=== PATIENT | female | born 1990 | race Two or more races ===

== ENCOUNTER 2023-03-08 10:32 | Outpatient (OUT) | payer OTHER, SELFPAY ==
--- NOTE | 2023-03-08 | XR_ITS ---
The [address] [address] Patient Name: DOUGLAS PALMER MRN: [id number] date: 1990 Sex: F Assigned Patient Location: [facility] Current Patient Location: [facility] Accession/Order Number: [id number] Exam Date: 03/08/2023 10:45 Report Date: 03/08/2023 13:08 At the request of: BRE HILTON Procedure: XR foot RT min 3V Exam: Radiographs: XR foot RT min 3V Reason for exam: RIGHT FOOT INJURY Comparison: Plain films dated 03/05/2023 XR/XR foot RT min 3V IMPRESSION: Acute nondisplaced fracture through the first distal phalanx with fracture line extension to the IP joint. Remainder the right foot is unremarkable. Electronically authenticated by: NANCY CORNELL Date: 03/08/2023 13:08
== END 2023-03-08 10:33 | disposition home or self-care (01) ==
LOC: RAD 10:32
PROVIDERS: Visit Provider Physician Assistant
DX: M79.674 Pain in right toe(s) (principal); S92.424D Nondisplaced fracture of distal phalanx of right great toe, subsequent encounter for fracture with routine healing
CPT/HCPCS: 73630

== ENCOUNTER 2023-03-23 09:25 | Outpatient (OUT) | payer OTHER, SELFPAY ==
--- NOTE | 2023-03-23 | XR_ITS ---
The [address] [address] Patient Name: DOUGLAS PALMER MRN: [id number] date: 1990 Sex: F Assigned Patient Location: [facility] Current Patient Location: [facility] Accession/Order Number: [id number] Exam Date: 03/23/2023 09:50 Report Date: 03/23/2023 11:34 At the request of: IVIS PRICE Procedure: XR foot RT min 3V PROCEDURE: XR foot RT min 3V COMPARISON: 03/08/2023 HISTORY: RIGHT FOOT PAIN FINDINGS: BONES:Subacute intra-articular fracture base of the first distal phalanx with no significant change in angulation or distraction. No new fracture or dislocation SOFT TISSUES:Negative. No visible soft tissue swelling. EFFUSION:None visible. OTHER: Negative. XR/XR foot RT min 3V IMPRESSION: Stable intra-articular nondisplaced fracture base of the first distal phalanx Electronically authenticated by: RADHA BERGERON Date: 03/23/2023 11:34
== END 2023-03-23 09:26 | disposition home or self-care (01) ==
LOC: RAD 09:25
PROVIDERS: Visit Provider Podiatrist Foot & Ankle Surgery
DX: S92.421A Displaced fracture of distal phalanx of right great toe, initial encounter for closed fracture (principal); S92.424D Nondisplaced fracture of distal phalanx of right great toe, subsequent encounter for fracture with routine healing
CPT/HCPCS: 73630

== ENCOUNTER 2023-09-27 08:03 | Outpatient (OUT) | payer OTHER, SELFPAY ==
--- NOTE | 2023-09-27 | XR_ITS ---
The [address] [address] Patient Name: DOUGLAS PALMER MRN: [id number] date: 1990 Sex: F Assigned Patient Location: Current Patient Location: Accession/Order Number: [id number] Exam Date: 09/27/2023 11:00 Report Date: 09/30/2023 04:45 At the request of: BRE HILTON Procedure: XR foot RT min 3V PROCEDURE: XR foot RT min 3V HISTORY: RIGHT FOOT PAIN COMPARISON: XR foot right 03/23/2023, 09/23/2023 FINDINGS: BONES:Transverse fracture line through base of first toe distal phalanx without intra-articular extension. Residual evidence of prior first distal phalanx fracture which extended into the articular surface. SOFT TISSUES:No visible soft tissue swelling. EFFUSION:None visible. OTHER: Negative. XR/XR foot RT min 3V IMPRESSION: 1. Acute to subacute transverse fracture through base of first distal phalanx. 2. Evidence of prior first distal phalanx fracture. Electronically authenticated by: RONEL DE LA GARZA Date: 09/30/2023 04:45
== END 2023-09-27 08:04 | disposition home or self-care (01) ==
LOC: EC 08:03
PROVIDERS: Visit Provider Physician Assistant
DX: M79.671 Pain in right foot (principal); S92.424A Nondisplaced fracture of distal phalanx of right great toe, initial encounter for closed fracture
CPT/HCPCS: 73630

== ENCOUNTER 2023-10-10 13:59 | Outpatient (OUT) | payer OTHER, SELFPAY ==
--- NOTE | 2023-10-10 | XR_ITS ---
The [address] [address] Patient Name: DOUGLAS PALMER MRN: [id number] date: 1990 Sex: F Assigned Patient Location: Current Patient Location: Accession/Order Number: [id number] Exam Date: 10/10/2023 13:59 Report Date: 10/10/2023 16:20 At the request of: BRE HILTON Procedure: XR foot RT min 3V PROCEDURE: XR foot RT min 3V COMPARISON: 09/27/2023 HISTORY: RIGHT FOOT PAIN FINDINGS: BONES:Increase in lucency across the base of the first distal phalanx consistent with lytic phase of healing. No bony bridging is observed. No additional fracture or dislocation SOFT TISSUES:Negative. No visible soft tissue swelling. EFFUSION:None visible. OTHER: Negative. XR/XR foot RT min 3V IMPRESSION: Stable extra-articular fracture base of the first distal phalanx with lytic healing Electronically authenticated by: RADHA BERGERON Date: 10/10/2023 16:20
== END 2023-10-10 14:00 | disposition home or self-care (01) ==
LOC: EC 13:59
PROVIDERS: Visit Provider Physician Assistant
DX: M79.671 Pain in right foot (principal); S92.424D Nondisplaced fracture of distal phalanx of right great toe, subsequent encounter for fracture with routine healing
CPT/HCPCS: 73630

== ENCOUNTER 2023-11-08 13:51 | Outpatient (OUT) | payer MEDICAID, SELFPAY ==
--- NOTE | 2023-11-08 | XR_ITS ---
[address] [address] Patient Name: DOUGLAS PALMER MRN: [id number] date: 1990 Sex: F Assigned Patient Location: Current Patient Location: Accession/Order Number: [id number] Exam Date: 11/08/2023 13:54 Report Date: 11/09/2023 07:55 At the request of: IVIS PRICE Procedure: XR foot RT min 3V PROCEDURE: XR foot RT min 3V, XR ankle RT min 3V COMPARISON: 10/10/2023 HISTORY: RIGHT FOOT PAIN FINDINGS: BONES:Stable extra-articular transverse fracture base of the first distal phalanx with slight increase in bone formation but incomplete bony bridging. No additional fracture or dislocation. SOFT TISSUES:Negative. No visible soft tissue swelling. EFFUSION:None visible. OTHER: Vascular calcifications XR/XR foot RT min 3V IMPRESSION: Stable healing fracture first distal phalanx with incomplete bony bridging Electronically authenticated by: RADHA BERGERON Date: 11/09/2023 07:55
--- NOTE | 2023-11-08 | XR_ITS ---
[address] [address] Patient Name: DOUGLAS PALMER MRN: [id number] date: 1990 Sex: F Assigned Patient Location: Current Patient Location: Accession/Order Number: [id number] Exam Date: 11/08/2023 13:54 Report Date: 11/09/2023 07:55 At the request of: IVIS PRICE Procedure: XR ankle RT min 3V PROCEDURE: XR foot RT min 3V, XR ankle RT min 3V COMPARISON: 10/10/2023 HISTORY: RIGHT FOOT PAIN FINDINGS: BONES:Stable extra-articular transverse fracture base of the first distal phalanx with slight increase in bone formation but incomplete bony bridging. No additional fracture or dislocation. SOFT TISSUES:Negative. No visible soft tissue swelling. EFFUSION:None visible. OTHER: Vascular calcifications XR/XR ankle RT min 3V IMPRESSION: Stable healing fracture first distal phalanx with incomplete bony bridging Electronically authenticated by: RADHA BERGERON Date: 11/09/2023 07:55
== END 2023-11-08 13:52 | disposition home or self-care (01) ==
LOC: EC 13:53
PROVIDERS: Visit Provider Podiatrist Foot & Ankle Surgery
DX: M79.671 Pain in right foot (principal); M25.571 Pain in right ankle and joints of right foot; S92.424D Nondisplaced fracture of distal phalanx of right great toe, subsequent encounter for fracture with routine healing
CPT/HCPCS: 73610; 73630

== ENCOUNTER 2023-12-18 13:06 | Outpatient (OUT) | payer MEDICAID, SELFPAY ==
--- NOTE | 2023-12-18 | XR_ITS ---
The [address] [address] Patient Name: DOUGLAS PALMER MRN: [id number] date: 1990 Sex: F Assigned Patient Location: Current Patient Location: Accession/Order Number: [id number] Exam Date: 12/18/2023 13:17 Report Date: 12/20/2023 05:03 At the request of: BRE HILTON Procedure: XR foot RT min 3V PROCEDURE: XR foot RT min 3V HISTORY: RIGHT FOOT PAIN COMPARISON: XR foot right 11/08/2023 FINDINGS: BONES:Amputation of distal first toe at level of the interphalangeal joint. No fracture, dislocation, or suspicious findings. SOFT TISSUES:Soft tissue changes overlying tip of first toe. No free air. EFFUSION:None visible. OTHER: Negative. XR/XR foot RT min 3V IMPRESSION: 1. Amputation of distal half of first toe. No acute or suspicious findings. Electronically authenticated by: RONEL DE LA GARZA Date: 12/20/2023 05:03
== END 2023-12-18 13:07 | disposition home or self-care (01) ==
PROVIDERS: Visit Provider Physician Assistant
DX: M79.671 Pain in right foot (principal)
CPT/HCPCS: 73630

== ENCOUNTER 2024-06-20 10:13 | Outpatient (OUT) | payer MEDICAID, SELFPAY ==
--- NOTE | 2024-06-20 | XR_ITS ---
The [address] [address] Patient Name: DOUGLAS PALMER MRN: [id number] date: 1990 Sex: F Assigned Patient Location: Current Patient Location: Accession/Order Number: [id number] Exam Date: 06/20/2024 10:14 Report Date: 06/25/2024 15:42 At the request of: IVIS PRICE Procedure: XR ankle LT min 3V PROCEDURE: XR ankle LT min 3V HISTORY: LEFT ANKLE PAIN ; lateral ankle pain since falling 2 nights ago COMPARISON: None. FINDINGS: BONES:No fracture, acute abnormality, or significant arthropathy. SOFT TISSUES:Mild soft tissue swelling surrounding the ankle. EFFUSION:None visible. OTHER: Negative. XR/XR ankle LT min 3V IMPRESSION: 1. No acute bone abnormality. Electronically authenticated by: RONEL DE LA GARZA Date: 06/25/2024 15:42
== END 2024-06-20 10:14 | disposition home or self-care (01) ==
LOC: EC 10:13
PROVIDERS: Visit Provider Podiatrist Foot & Ankle Surgery
DX: M25.572 Pain in left ankle and joints of left foot (principal)
CPT/HCPCS: 73610